=== PATIENT | male | born 1995 | race Caucasian/White ===

== ENCOUNTER 2024-02-26 23:11 | Observation (INO) | payer OTHER, SELFPAY ==
[2024-02-26 23:12] VITALS: BP 165/125; BP 188/121; PULSE 120; PULSE 125; RESP 20; RESP 24; TEMP 37.1; O2SAT 98; BMI 23.1
--- NOTE | 2024-02-26 23:28 | EKG12_ITS ---
Test Reason : ETOH DETOX Blood Pressure : / mmHG Vent. Rate : 111 BPM Atrial Rate : 111 BPM P-R Int : 118 ms QRS Dur : 080 ms QT Int : 290 ms P-R-T Axes : 034 055 -03 degrees QTc Int : 394 ms Sinus tachycardia Nonspecific ST and T wave abnormality Abnormal ECG Confirmed by Gonzalo Kowalski ([id number]), acquisitions editor GEOVANNA DAWN ([id number]) on 02/28/2024 7:13:38 AM Referred By: JACEK Confirmed By:Gonzalo Kowalski
[2024-02-26 23:41] LABS: Absolute Lymphocyte Count 1.52 X10^3/uL (0.83-4.51); Absolute Neutrophil Count 5.9 X10^3/uL (2.0-7.7); Basophil# 0.09 X10^3/uL; Basophil% 1.1 % (0-1); Eosinophil# 0.03 X10^3/uL; Eosinophils% 0.4 % (0-5); Hematocrit 45.3 % (40-54); Hemoglobin 15.2 g/dL (13.0-16.5); Lymphocyte # 1.52 X10^3/ul (0.83-4.51); Lymphocyte % 18.4 % (19-41); Mean Corp Hgb Conc 33.6 g/dL (32-36); Mean Corpuscular Hgb 32.2 pg (27.0-32.0); Mean Platelet Vol. 11.3 fl (6.2-12.0); Monocyte# 0.73 X10^3/uL; Monocyte% 8.8 % (0-10); NRBC Flagged by Analyzer 0 % (0-5); Neutrophil # 5.86 X10^3/uL (2.7-7.7); Neutrophil % 70.9 % (47-70); Platelet Count 154 K/mm3 (150-450); RBC Distribution Width CV 12.8 % (11.6-14.6); RBC Distribution Width SD 45.8 fl (35.1-43.9); Red Blood Count 4.72 M/mm3 (4.6-6.2); White Blood Count 8.3 K/mm3 (4.4-11.0)
[2024-02-26] MEDS: LORazepam 2 MG/ML Syringe IV (23:42)
[2024-02-26] MEDS: 0.9% Normal Saline (1000mL) 1,000 ML 999 ML IV (23:42)
--- NOTE | 2024-02-26 23:48 | EDS_ITS ---
HPI History of Present Illness Chief Complaint: ETOH Intox Narrative Narrative: 28-year-old male presenting for detox from alcohol. He states he does not do other drugs but did smoke marijuana once last week. He reports that he drinks about a handle of Adalid Vizcarra every other day. Last drink was just a few hours ago. He has been tried over the last month for detox but every time he does he gets the shakes and feels bad. Patient has never detoxed before. He is never had a history of withdrawal seizures. He does not think he can detox on his own. He reports feeling very shaky. Denies any other medical problems. [facility] Medical History Alcohol abuse Home Medications NK 02/26/24 [History Last Taken Unknown] Allergy/AdvReac Type Severity Reaction Status Date / Time No Known Allergies Allergy Verified 02/26/24 23:12 Social History Smoking Status: Current every day smoker tobacco type: e-cigarettes ROS ROS ED Constitutional Constitutional ED: Denies chills, fever(s) or sweats Eyes Eyes: Denies blurry vision or change in vision ENT ENT ED: Denies ear pain or sore throat Cardiovascular Cardiovascular: Denies chest pain, palpitations or racing heartbeat Respiratory/Chest Respiratory/Chest: Denies cough, dyspnea or sputum Gastrointestinal Gastrointestinal: Denies abdominal pain, constipation, diarrhea, nausea or vomiting Genitourinary Genitourinary ED: Denies dysuria, hematuria or urinary frequency Musculoskeletal Musculoskeletal: Denies arthralgias, myalgias or neck pain Integumentary Denies abscess, Abrasions or rash Neurologic Neurologic: Denies headache(s), paresthesias or weakness Psychiatric Psychiatric: Denies anxiety, depression, suicidal ideation or suicidal thoughts Endocrine Endocrinology: Denies polydipsia or polyuria EXAM Physical Exam Const Vital Signs: 02/26/24 23:12 02/26/24 23:12 Temperature 98.8 F 98.8 F Temperature Source Oral Oral Pulse Rate 125 H 120 H Respiratory Rate 24 H 20 H Blood Pressure 188/121 H 165/125 H Blood Pressure Mean 143 138 Blood Pressure Source Monitor Blood Pressure Position Semi-Fowlers Blood Pressure Location Left Arm Pulse Ox 98 98 Positive well nourished General Appearance ED: NAD HEENT Reports moist mucous membranes Eyes PERRL and EOMs intact bilaterally Chest Wall inspection of chest normal Resp normal respiratory effort and clear to auscultation bilaterally Auscultation: Negative for rales, rhonchi or wheezes Cardio Rate: tachycardic GI soft to palpation and non-tender Neuro oriented x3 and CN's II-XII intact bilaterally Sensorium / Orientation: alert Motor Exam: strength 5/5 throughout Psych mental status grossly normal Mood & Affect: anxious MDM MDM MDM Narrative Medical decision making narrative: Patient presenting for alcohol detox. He is shaky. He is hypertensive and tachycardic. He is given 2 mg of Ativan and I started about a phenobarbital. Screening lab work was obtained. Patient given IV fluids. CBC shows normal white blood cell 8.3. Hemoglobin 15.2. Platelets are normal at 54. Creatinine normal at 1.15. Electrolytes within normal limits with exception of a sodium of 132. LFTs are abnormal. Patient has total bilirubin 1.9, AST 46, ALT 176, alk phos 131. Likely related to alcohol abuse. EtOH is negative. Lipase is normal. Patient was assessed with hospitalist for admission. Impression: 1. EtOH withdrawal 2. EtOH abuse 3. Presentation for EtOH detox 4. Alcoholic hepatitis Lab Data Attestation: I reviewed the patient's lab results. Labs: Laboratory Results - last 24 hr 02/26/24 23:18 WBC 8.3 RBC 4.72 Hgb 15.2 Hct 45.3 MCV 96.0 H MCH 32.2 H MCHC 33.6 RDW Std Deviation 45.8 H RDW Coeff of Oskar 12.8 Plt Count 154 MPV 11.3 Immature Gran % (Auto) 0.400 Neut % (Auto) 70.9 H Lymph % (Auto) 18.4 L [place] % (Auto) 8.8 Eos % (Auto) 0.4 Baso % (Auto) 1.1 H Absolute Neuts (auto) 5.9 Absolute Lymphs (auto) 1.52 Nucleated RBC % 0 Sodium 132 L Potassium 3.6 Chloride 94 L Carbon Dioxide 28.0 Anion Gap 10 BUN 12 Creatinine 1.15 Estim Creat Clear Calc 100.95 Est GFR (MDRD) Af Amer 96 Est GFR (MDRD) Non-Af 80 BUN/Creatinine Ratio 10.4 Glucose 120 H Calcium 10.3 H Total Bilirubin 1.90 H AST 436 H ALT 176 H Alkaline Phosphatase 131 H Total Protein 9.5 H Albumin 5.1 H Globulin 4.4 H Albumin/Globulin Ratio 1.2 Lipase 34 Ethyl Alcohol 4.0 Discharge Plan Triage Chief Complaint: ETOH Intox ED Provider: Krishna Rosas Dx/Rx/DC Orders Prescriptions: No Action NK Primary Care Provider: Care Physician,No Primary Referrals: NOT,DEFINED [Non-Staff] -
[2024-02-26] MEDS: Phenobarbital 32.4 MG Tablet 97.2 MG PO (23:57)
[2024-02-26 23:58] LABS: ALB/GLOB Ratio 1.2 RATIO (0.9-2.4); AST(SGOT) 436 U/L (15-37); Alanine Aminotransfer ALT/SGPT 176 U/L (16-61); Albumin, Serum 5.1 g/dL (3.2-5.0); Alkaline Phosphatase 131 U/L (45-117); Anion Gap 10 (5-15); BUN 12 mg/dL (7-18); BUN/Creat Ratio 10.4 RATIO (10-20); Calcium,Total 10.3 mg/dL (8.5-10.1); Chloride 94 mmol/L (98-107); Creatinine, Serum 1.15 mg/dL (0.70-1.30); EST Glomerular Filtration Rate 80 mL/min (>60); Est Glom Filt Rate - Afr Amer 96 mL/min (>60); Estimated Creatinine Clearance 100.95 ml/min; Globulin 4.4 g/dL (2.2-4.2); Glucose 120 mg/dL (74-106); Lipase 34 U/L (13-75); Potassium 3.6 mmol/L (3.5-5.1); Protein, Total 9.5 g/dL (6.4-8.2); Sodium Level 132 mmol/L (136-145)
[2024-02-27] VITALS (14 sets, daily range): BP systolic 123–161; BP diastolic 82–111; PULSE 66–113; RESP 14–27; TEMP 36.2–36.6; O2SAT 93–100; BMI 23.6
[2024-02-27] MEDS: Ondansetron 4 MG/2 ML Vial IV (00:05)
--- NOTE | 2024-02-27 00:12 | HP.PCM.HOS_ITS ---
[facility] - General General Date of Admission: 02/27/24 Date of Service: 02/27/24 Chief Complaint: Alcohol Withdrawal. HPI Narrative NAE JOHNSON, is a 28 M with a past medical history of tobacco abuse, chronic alcohol abuse for the past 10 years; with patient drinking several beers and a handle of Adalid Vizcarra every other day, cannabis abuse and depression with anxiety who presents to [facility] ER complaining of alcohol withdrawal. Mr. Johnson reports his symptoms began approximately 1 day prior to admission when he began attempting to wean himself off of alcohol. He states his last drink was a few hours ago but he vomited up with progressively worsening tremor, chills and malaise so he decided to come in for further ev aluation and treatment. Upon further questioning he states he has tried to quit 7 times in the past by himself and has not been able to do so. He states he has never been in a formal alcohol detox program before. He denies a history of alcohol withdrawal seizures or DTs. He also denies associated fever, nausea, vomiting, shortness of breath, chest pain or other illicit drug use. In the ER he was diagnosed with clinical evidence of acute alcohol withdrawal in the setting of chronic alcohol abuse and laboratory evidence of acute alcoholic hepatitis with mild hyperbilirubinemia of 1.9 mg/dL present on admission in addition to moderately elevated LFTs and he was then admitted to the general medical floor for ongoing care for stay that is expected to be greater than 48 hours. [facility] Medical History Alcohol abuse Home Medications NK 02/26/24 [History Last Taken Unknown] Allergy/AdvReac Type Severity Reaction Status Date / Time No Known Allergies Allergy Verified 02/26/24 23:12 Social History Smoking Status: Current every day smoker tobacco type: e-cigarettes ROS ROS Narrative Review of systems: General: Patient admits to chills and tremor but denies fever or sweats. HENT: Denies headache, denies stuffy nose, denies sore throat EYES: Denies changes in vision or discharge from eyes. Resp: Denies cough, denies shortness of breath Cardiac: Denies chest pain, palpitations or heart racing. GI: Denies abdominal pain, denies changes in bowel, denies nausea or vomiting. : Denies changes in urination Extremity: Denies swelling Musculoskeletal: Patient denies arthralgias or myalgias. Neuro: Patient denies headache, paresthesias or focal neurologic weakness. Heme: Denies any bleeding or bruising Skin: Denies rashes Psychiatric: Patient admits to severe anxiety chronic depression made worse by his alcohol abuse. Endocrine: No polyuria, polydipsia or polyphagia. The rest of the 14 point ROS was negative except for positives in HPI. Vital Signs Vital Signs Vital Signs: 02/26/24 23:12 02/26/24 23:12 Temperature 98.8 F 98.8 F Temperature Source Oral Oral Pulse Rate 125 H 120 H Respiratory Rate 24 H 20 H Blood Pressure 188/121 H 165/125 H Blood Pressure Mean 143 138 Blood Pressure Source Monitor Blood Pressure Position Semi-Fowlers Blood Pressure Location Left Arm Pulse Ox 98 98 Weight Weight: 166 lb 0.129 oz Body Mass Index (BMI) 23.1 Physical Exam Const alert, oriented x3, no apparent distress and average body habitus General Appearance: cooperative HEENT normocephalic, head/scalp atraumatic, hearing grossly normal bilaterally and moist oral mucous membranes Eyes PERRL and EOMs intact bilaterally Neck no lymphadenopathy and supple Resp normal respiratory effort, no retractions, no use of accessory muscles and clear to auscultation bilaterally Cardio regular rate and regular rhythm GI normal to inspection, nondistended, normoactive bowel sounds, soft to palpation, non-tender and non-distended Extremity normal to inspection and full ROM Skin Skin Narrative: Patient has no evidence of rash or jaundice. Neuro oriented x3, CN's II-XII intact bilaterally, moves all extremities and no focal motor deficits Neuro Narrative: Patient is tremulous and anxious. Sensorium / Orientation: awake, alert, oriented to person, oriented to place and oriented to time Speech: speech normal Motor Exam: strength 5/5 throughout Psych Mood & Affect: anxious Results Medical Records Data Attestation: I reviewed the patient's medical records Lab / Micro Data Attestation: I reviewed the patient's lab results. 02/26/24 23:18 02/26/24 23:18 Labs: Laboratory Results - last 24 hr 02/26/24 23:18: WBC 8.3, RBC 4.72, Hgb 15.2, Hct 45.3, MCV 96.0 H, MCH 32.2 H, MCHC 33.6, RDW Std Deviation 45.8 H, RDW Coeff of Oskar 12.8, Plt Count 154, MPV 11.3, Immature Gran % (Auto) 0.400, Neut % (Auto) 70.9 H, Lymph % (Auto) 18.4 L, [place] % (Auto) 8.8, Eos % (Auto) 0.4, Baso % (Auto) 1.1 H, Absolute Neuts (auto) 5.9, Absolute Lymphs (auto) 1.52, Nucleated RBC % 0, Sodium 132 L, Potassium 3.6, Chloride 94 L, Carbon Dioxide 28.0, Anion Gap 10, BUN 12, Creatinine 1.15, Estim Creat Clear Calc 100.95, Est GFR (MDRD) Af Amer 96, Est GFR (MDRD) Non-Af 80, BUN/Creatinine Ratio 10.4, Glucose 120 H, Calcium 10.3 H, Total Bilirubin 1.90 H, AST 436 H, ALT 176 H, Alkaline Phosphatase 131 H, Total Protein 9.5 H, Albumin 5.1 H, Globulin 4.4 H, Albumin/Globulin Ratio 1.2, Lipase 34, Ethyl Alcohol 4.0 Assessment & Plan Assessment/Plan (1) Alcohol withdrawal: QUALIFIERS: Complication of substance-induced condition: with unspecified complication Qualified Code(s): F10.939 - Alcohol use, unspecified with withdrawal, unspecified (2) Alcoholic hepatitis without ascites: (3) Hyperbilirubinemia: (4) Chronic alcohol abuse: (5) Tobacco abuse: PLAN: Plan 1. Acute alcohol withdrawal in the setting of chronic alcohol abuse - Admit to general medical floor for treatment under the alcohol withdrawal protocol primarily with phenobarbital. Avoid Tylenol and this chronic alcoholic patient. Alcohol cessation was strongly encouraged with patient verbalizing understanding. 2. Alcoholic hepatitis; without ascites; but with mild hyperbilirubinemia of 1.9 mmol/L moderately elevated LFTs complicating #1 - Serialize CMP's to follow trend. Check PT/INR to evaluate his liver synthetic function of clotting factors. 3. Uncontrolled depression and anxiety compounding #1 & #2 - Patient directly asked about being started on antidepressants. He was informed that he would have to achieve sobriety before being started on antidepressant so that he does not run the additional risk of heavy drinking while on antidepressant medication. 4. Tobacco abuse adding to the pathology of #1 - #3 - Tobacco cessation was strongly encouraged with nicotine patch over to control cravings. 5. Cannabis abuse - Cannabis cessation will be strongly encouraged. 6. DVT prophylaxis - Lovenox 40 mg sq daily. Total time: Approximately 55 minutes. Charges/Coding Visit Charges Inpatient E&M: 66053 Init Hosp L2
[2024-02-27 00:45] LABS: Amphetamine Urine VISTA NEGATIVE (<1000 ng/mL); Barbiturate Urine VISTA NEGATIVE (< 200 ng/mL); Benzodiazepine Urine VISTA NEGATIVE (< 200 ng/mL); Cocaine Urine VISTA NEGATIVE (< 300 ng/mL); Ecstacy Urine VISTA NEGATIVE (< 500 ng/mL); Methadone Urine VISTA NEGATIVE (< 300 ng/mL); PCP Urine VISTA NEGATIVE (< 25 ng/mL); THC Urine VISTA POSITIVE (< 50 ng/mL); Vista UDS pH Range 5
[2024-02-27 02:07] LABS: International Normalized Ratio 1.2; Prothrombin Time (Protime)PT. 14.7 SECONDS (11.7-14.9)
[2024-02-27] MEDS: Gabapentin 300 MG Capsule PO ×2 (02:14→23:27)
[2024-02-27] MEDS: Phenobarbital 32.4 MG Tablet 64.8 MG PO ×6 (04:04→23:27)
[2024-02-27] MEDS: Ibuprofen 200 MG Tablet PO (04:06)
--- NOTE | 2024-02-27 07:27 | PCM.PN.HOSP ---
Reason for Visit Reason for Visit: Diagnoses Other disorders of bilirubin metabolism (02/27/24) Alcohol abuse, uncomplicated (02/27/24) Alcohol use, unspecified with withdrawal, unspecified (02/27/24) Alcoholic hepatitis without ascites (02/27/24) Tobacco use (02/27/24) Objective Data Objective Data Vital Signs: Vital Signs Temp Pulse Resp BP Pulse Ox O2 Del Method 98 F 103 H 14 138/98 H 98 Room Air 02/27/24 04:00 02/27/24 04:00 02/27/24 04:00 02/27/24 04:00 02/27/24 04:00 02/27/24 04:00 Oxygen Delivery Method Room Air Weight: 164 lb 3.91 oz Body Mass Index (BMI) 23.6 Intake & Output: Intake and Output for Last 24 Hours 02/25/24 02/26/24 02/27/24 23:59 23:59 23:59 Intake Total 1000 / 1000 Balance 1000 / 1000 Lab / Micro Data 02/26/24 23:18 02/26/24 23:18 Labs: Laboratory Results - last 24 hr 02/26/24 00:18: Urine Opiates Screen NEGATIVE, Urine Methadone Screen NEGATIVE, Ur Barbiturates Screen NEGATIVE, Ur Phencyclidine Scrn NEGATIVE, Ur Amphetamines Screen NEGATIVE, MDMA (Ecstasy) Screen NEGATIVE, U Benzodiazepines Scrn NEGATIVE, Urine Cocaine Screen NEGATIVE, U Cannabinoids Screen POSITIVE H, Ur Drug Screen Comment 02/26/24 23:18: WBC 8.3, RBC 4.72, Hgb 15.2, Hct 45.3, MCV 96.0 H, MCH 32.2 H, MCHC 33.6, RDW Std Deviation 45.8 H, RDW Coeff of Oskar 12.8, Plt Count 154, MPV 11.3, Immature Gran % (Auto) 0.400, Neut % (Auto) 70.9 H, Lymph % (Auto) 18.4 L, [place] % (Auto) 8.8, Eos % (Auto) 0.4, Baso % (Auto) 1.1 H, Absolute Neuts (auto) 5.9, Absolute Lymphs (auto) 1.52, Nucleated RBC % 0, PT 14.7, INR 1.2, Sodium 132 L, Potassium 3.6, Chloride 94 L, Carbon Dioxide 28.0, Anion Gap 10, BUN 12, Creatinine 1.15, Estim Creat Clear Calc 100.95, Est GFR (MDRD) Af Amer 96, Est GFR (MDRD) Non-Af 80, BUN/Creatinine Ratio 10.4, Glucose 120 H, Calcium 10.3 H, Total Bilirubin 1.90 H, AST 436 H, ALT 176 H, Alkaline Phosphatase 131 H, Total Protein 9.5 H, Albumin 5.1 H, Globulin 4.4 H, Albumin/Globulin Ratio 1.2, Lipase 34, Ethyl Alcohol 4.0 Physical Exam Narrative Seen and examined. Patient admitted with acute alcohol withdrawal symptoms. Patient has mild tremors shaking and restlessness. Denies seizure or any acute DT he was drinking about 1 big bottle of Adaild Vizcarra every day Physical exam General: Alert, Oriented x3, Cooperative HEENT: Atraumatic, PERRLA, EOMI, Normocephalic Oral: No Gingival or Mucosal Lesions/ Ulcerations Neck: Supple, No JVD, Negative Carotid Bruits Chest wall/Lungs: Air entry diminished in bilateral lung bases. No crepitation/rhonchi Cardiovascular: Regular rate, Regular Rhythm, Normal S1, Normal S2, No M/G/R Abdomen: Bowel Sounds Present, Soft, Non Tender, Non-Distended : No dysuria. No renal angle tenderness. No suprapubic tenderness. Extremities: No edema, Capillary Refill Less than 3 Seconds Skin: No rashes, No breakdown Musculoskeletal: No Tenderness to Palpation of Joints or Extremities. Mild tremors. Neurological: Cranial nerves II-XII grossly intact, DTR 2+/4. No acute focal neurological deficit. Psych/Mental Status: Anxiety, restlessness Skin Skin Narrative: Patient has no evidence of rash or jaundice. Neuro Neuro Narrative: Patient is tremulous and anxious. Assessment & Plan Assessment/Plan (1) Alcohol withdrawal: QUALIFIERS: Complication of substance-induced condition: with unspecified complication Qualified Code(s): F10.939 - Alcohol use, unspecified with withdrawal, unspecified (2) Alcoholic hepatitis without ascites: PLAN: Plan 67-year-old female was admitted to nursing station 28-year-old gentleman with history of chronic alcohol use was admitted with acute alcohol withdrawal symptoms with vomiting tremor chills malaise. 1. Acute alcohol withdrawal in the setting of chronic alcohol abuse - [facility] Patient on phenobarbital based order set along with other adjunctive medications gabapentin, Bentyl, Vistaril, clonidine, Klonopin as needed for alcohol withdrawal symptom control. Patient is on thiamine and folate acid. [place] monitor. housing case manager consulted.. Patient attempted to self wean off alcohol 1 day prior to admission. Earlier, patient tried to quit several times but relapsed. Denies history of seizure or DT 2. Acute on chronic alcoholic hepatitis; without ascites; but with mild hyperbilirubinemia of 1.9 mmol/L - 02/26: INR 1.2. Total bilirubin 1.9. ALT AST are elevated, AST: ALT ratio more than 2 is to 1. Patient does not qualify for steroid as per Shelby's discrimination factor. Monitor liver chemistry 3. Uncontrolled depression and anxiety- Patient directly asked about being started on antidepressants. He was informed that he would have to achieve sobriety before being started on antidepressant so that he does not run the additional risk of heavy drinking while on antidepressant medication. 4. Tobacco abuse adding to the pathology of #1 - #3 - Tobacco cessation was strongly encouraged with nicotine patch over to control cravings. 5. Cannabis abuse - Cannabis cessation will be strongly encouraged. 6. DVT prophylaxis - Lovenox 40 mg sq daily. T Charges/Coding Visit Charges Inpatient E&M: 26196 Subs Hosp L2
[2024-02-27] MEDS: Thiamine Hydrochloride 100 MG Tablet PO (09:26)
[2024-02-27] MEDS: Folic Acid 1 MG Tablet PO (09:26)
--- NOTE | 2024-02-27 11:05 | ADDICTION ---
TW met with PT to complete RAMP assessments. Pt reports this is his first time coming to a medical detox. He reports that he has tried it on his own but the symptoms were too bad to continue. Pt answered all questions appropriately. Pt reports that he would like to speak to his preacher and possibly go to AA prior to involving himself in any treatment. Pt has some ambivalence for changed behavior as evidence by suggesting he smoke marijuana and take anxiety medications instead of drinking alcohol behavior. TW suggested outpatient AOD counseling to help pt understand addiction and addictive behaviors. Pt reported he would think about it.
[2024-02-27] MEDS: Nicotine Polacrilex 2 MG GUM PO ×4 (12:18→23:35)
[2024-02-27] MEDS: traZODone 100 MG Tablet PO (23:27)
[2024-02-28 04:23] VITALS: BP 150/97; PULSE 87; RESP 18; TEMP 36.2; O2SAT 98
[2024-02-28] MEDS: Phenobarbital 32.4 MG Tablet 64.8 MG PO ×6 (04:33→23:33)
[2024-02-28] MEDS: Nicotine Polacrilex 2 MG GUM PO ×3 (04:35→11:39)
[2024-02-28 07:54] VITALS: BP 153/100; PULSE 69; RESP 16; TEMP 36.6; O2SAT 98
[2024-02-28] MEDS: Thiamine Hydrochloride 100 MG Tablet PO (08:03)
[2024-02-28] MEDS: Folic Acid 1 MG Tablet PO (08:03)
[2024-02-28] MEDS: hydrOXYzine PAM 25 MG Capsule 50 MG PO ×2 (08:08→20:02)
[2024-02-28] MEDS: Ibuprofen 200 MG Tablet PO (08:08)
--- NOTE | 2024-02-28 08:51 | PCM.PN.HOSP ---
Reason for Visit Reason for Visit: Diagnoses Other disorders of bilirubin metabolism (02/27/24) Alcohol abuse, uncomplicated (02/27/24) Alcohol use, unspecified with withdrawal, unspecified (02/27/24) Alcoholic hepatitis without ascites (02/27/24) Tobacco use (02/27/24) Objective Data Objective Data Vital Signs: Vital Signs Temp Pulse Resp BP Pulse Ox O2 Del Method 97.8 F 69 16 153/100 H 98 Room Air 02/28/24 07:54 02/28/24 07:54 02/28/24 07:54 02/28/24 07:54 02/28/24 07:54 02/28/24 08:36 Oxygen Delivery Method Room Air Weight: 164 lb 3.91 oz Body Mass Index (BMI) 23.6 Intake & Output: Intake and Output for Last 24 Hours 02/26/24 02/27/24 02/28/24 23:59 23:59 23:59 Intake Total 2400 / 2400 Balance 2400 / 2400 Lab / Micro Data 02/26/24 23:18 02/28/24 07:30 Physical Exam Narrative Seen and examined. Patient asking for discharge but was told that he is on high-dose of phenobarbitone 97.2 mg. He agreed to stay 1 more day. Alcohol withdrawal symptoms are better. Patient admitted with acute alcohol withdrawal symptoms. Denies seizure or any acute DT he was drinking about 1 big bottle of Adalid Vizcarra every day Physical exam General: Alert, Oriented x3, Cooperative HEENT: Atraumatic, PERRLA, EOMI, Normocephalic Oral: No Gingival or Mucosal Lesions/ Ulcerations Neck: Supple, No JVD, Negative Carotid Bruits Chest wall/Lungs: Air entry diminished in bilateral lung bases. No crepitation/rhonchi Cardiovascular: Regular rate, Regular Rhythm, Normal S1, Normal S2, No M/G/R Abdomen: Bowel Sounds Present, Soft, Non Tender, Non-Distended : No dysuria. No renal angle tenderness. No suprapubic tenderness. Extremities: No edema, Capillary Refill Less than 3 Seconds Skin: No rashes, No breakdown Musculoskeletal: No Tenderness to Palpation of Joints or Extremities. Tremors have improved Neurological: Cranial nerves II-XII grossly intact, DTR 2+/4. No acute focal neurological deficit. Psych/Mental Status: Anxiety, restlessness Assessment & Plan Assessment/Plan (1) Alcohol withdrawal: QUALIFIERS: Complication of substance-induced condition: with unspecified complication Qualified Code(s): F10.939 - Alcohol use, unspecified with withdrawal, unspecified (2) Alcoholic hepatitis without ascites: PLAN: Plan 67-year-old female was admitted to nursing station 28-year-old gentleman with history of chronic alcohol use was admitted with acute alcohol withdrawal symptoms with vomiting tremor chills malaise. 1. Acute alcohol withdrawal in the setting of chronic alcohol abuse - patient is being admitted to [facility] floor. Patient on phenobarbital based order set along with other adjunctive medications gabapentin, Bentyl, Vistaril, clonidine, Klonopin as needed for alcohol withdrawal symptom control. Patient is on thiamine and folate acid. [facility] monitor. safety and skill based pay manager consulted.. Patient attempted to self wean off alcohol 1 day prior to admission. Earlier, patient tried to quit several times but relapsed. Denies history of seizure or DT 02/27: Phenobarbitone does decreased to 64.8 mg. Anticipate discharge tomorrow 2. Acute on chronic alcoholic hepatitis; without ascites; but with mild hyperbilirubinemia of 1.9 mmol/L - 02/26: INR 1.2. Total bilirubin 1.9. ALT AST are elevated, AST: ALT ratio more than 2 is to 1. Patient does not qualify for steroid as per Shelby's discrimination factor. Monitor liver chemistry 02/27: Liver chemistry shows improvement in ALT AST. GGT high 3036. Total bilirubin also improved from 1.9-1.6. 3. Uncontrolled depression and anxiety- Patient directly asked about being started on antidepressants. He was informed that he would have to achieve sobriety before being started on antidepressant so that he does not run the additional risk of heavy drinking while on antidepressant medication. 4. Tobacco abuse adding to the pathology of #1 - #3 - Tobacco cessation was strongly encouraged with nicotine patch over to control cravings. 5. Cannabis abuse - Cannabis cessation will be strongly encouraged. 6. DVT prophylaxis - Lovenox 40 mg sq daily. T Charges/Coding Visit Charges Inpatient E&M: 24380 Subs Hosp L2
[2024-02-28 09:40] LABS: AST(SGOT) 238 U/L (15-37); Alanine Aminotransfer ALT/SGPT 131 U/L (16-61); Albumin, Serum 4.2 g/dL (3.2-5.0); Alkaline Phosphatase 117 U/L (45-117); Anion Gap 7 (5-15); BUN 10 mg/dL (7-18); BUN/Creat Ratio 10.2 RATIO (10-20); Bilirubin, Direct 0.69 mg/dL (0.00-0.30); Calcium,Total 9.1 mg/dL (8.5-10.1); Chloride 100 mmol/L (98-107); Creatinine, Serum 0.98 mg/dL (0.70-1.30); EST Glomerular Filtration Rate 96 mL/min (>60); Est Glom Filt Rate - Afr Amer 116 mL/min (>60); Estimated Creatinine Clearance 114.84 ml/min; GGTP 3036 U/L (15-85); Glucose 113 mg/dL (74-106); Potassium 3.9 mmol/L (3.5-5.1); Protein, Total 8.2 g/dL (6.4-8.2); Sodium Level 132 mmol/L (136-145)
[2024-02-28 11:24] VITALS: BP 130/90; PULSE 81; RESP 12; TEMP 36.7; O2SAT 98
[2024-02-28 16:12] VITALS: BP 147/90; PULSE 78; RESP 16; TEMP 36.6; O2SAT 98
[2024-02-28 20:00] VITALS: BP 144/98; PULSE 77; RESP 18; TEMP 36.4; O2SAT 100
[2024-02-28 23:35] VITALS: BP 157/109; PULSE 75; RESP 18; TEMP 36.4; O2SAT 99
[2024-02-28] MEDS: 0.9% Saline Lock 10 ML Syringe IV (23:42)
[2024-02-29 03:54] VITALS: BP 145/109; PULSE 85; RESP 18; TEMP 36.4; O2SAT 99
[2024-02-29] MEDS: Phenobarbital 32.4 MG Tablet 64.8 MG PO ×3 (03:55→11:53)
[2024-02-29] MEDS: Enoxaparin 40 MG/0.4 ML Syringe SC (05:15)
[2024-02-29] MEDS: Gabapentin 300 MG Capsule PO (05:18)
[2024-02-29 05:31] LABS: Anion Gap 6 (5-15); BUN 9 mg/dL (7-18); BUN/Creat Ratio 9.7 RATIO (10-20); Calcium,Total 9.6 mg/dL (8.5-10.1); Chloride 102 mmol/L (98-107); Creatinine, Serum 0.93 mg/dL (0.70-1.30); EST Glomerular Filtration Rate 101 mL/min (>60); Est Glom Filt Rate - Afr Amer 123 mL/min (>60); Estimated Creatinine Clearance 121.01 ml/min; Glucose 98 mg/dL (74-106); Potassium 3.5 mmol/L (3.5-5.1); Sodium Level 135 mmol/L (136-145)
[2024-02-29 08:03] VITALS: BP 135/100; PULSE 64; RESP 18; TEMP 36.1; O2SAT 98
[2024-02-29] MEDS: Thiamine Hydrochloride 100 MG Tablet PO (08:08)
[2024-02-29] MEDS: Folic Acid 1 MG Tablet PO (08:09)
--- NOTE | 2024-02-29 08:16 | DCINST_ITS ---
Discharge Instructions Diet Discharge Diet: No restrictions Activity Discharge Activity: Return to Normal Activity Weight Bearing Status: Weight bearing as tolerated Dressing / Incision Call your doctor if you observe: Fever of 101 or Higher, Coldness, Increased Pain, Numbness or Tingling, Change in Color, Inability to urinate, Inability to have a bowel movement, Shortness of breath, Dizziness, Fainting spells, Swelling in the ankles, Chest pain, Prolonged hiccupping, Increased palpitations (irregular heartbeat) and Calf discomfort Follow Up Care When: IN 2 WEEKS Test Results: Test results from this visit will be discussed in further detail at your follow- up appointment, if applicable. Discharge Plan Admission Admit Date/Time: 02/27/24 00:30 Attending Provider: Jabier Hernandes Primary Care Provider: Care Physician,No Primary Consulting Providers: Sebastian Thompson Discharge Orders/Prescriptions Prescriptions: New thiamine HCl (vitamin B1) [Vitamin B-1] 100 mg Tablet 100 mg PO DAILYCM Qty: 30 2RF nicotine 21 mg/24 hr Patch 24 Hour 21 mg transdermal DAILY Qty: 28 0RF folic acid 1 mg Tablet 1 mg PO DAILY@0800 30 Days Qty: 30 3RF No Action NK Referrals / Follow Up: Care Physician,No Primary [Primary Care Provider] - NOT,DEFINED [Non-Staff] - Disposition Disposition (needs filled in before D/C Order can be placed): Home, Self Care
--- NOTE | 2024-02-29 08:20 | DS.PCM_ITS ---
Providers Date of Admission: 02/27/24 Date of Discharge: 02/29/24 Primary Care Physician: No Primary Care Phys Reason For Visit: ACUTE ALCOHOL WITHDRAWAL, ALCOHOLIC HEPATITIS AND Diagnosis Discharge Diagnosis (1) Alcohol withdrawal: Status: Acute Code(s): F10.939 - Alcohol use, unspecified with withdrawal, unspecified Qualifiers: Complication of substance-induced condition: with unspecified complication Qualified Code(s): F10.939 - Alcohol use, unspecified with withdrawal, unspecified (2) Alcoholic hepatitis without ascites: Status: Acute Code(s): K70.10 - Alcoholic hepatitis without ascites Plan 67-year-old female was admitted to nursing station 28-year-old gentleman with history of chronic alcohol use was admitted with acute alcohol withdrawal symptoms with vomiting tremor chills malaise. 1. Acute alcohol withdrawal in the setting of chronic alcohol abuse - [facility] Patient on phenobarbital based order set along with other adjunctive medications gabapentin, Bentyl, Vistaril, clonidine, Klonopin as needed for alcohol withdrawal symptom control. Patient is on thiamine and folate acid. [facility] monitor. manager secondary consulted.. Patient attempted to self wean off alcohol 1 day prior to admission. Earlier, patient tried to quit several times but relapsed. Denies history of seizure or DT 02/27: Phenobarbitone does decreased to 64.8 mg. 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 About 4 to 5 PM he fell asleep. In the morning he was still confused but later on the day he is behaving good. Patient is discharged on folic acid thiamine and advised follow-up 2. Acute on chronic alcoholic hepatitis; without ascites; but with mild hyperbilirubinemia of 1.9 mmol/L - 02/26: INR 1.2. Total bilirubin 1.9. ALT AST are elevated, AST: ALT ratio more than 2 is to 1. Patient does not qualify for steroid as per Shelby's discrimination factor. Monitor liver chemistry 02/27: Liver chemistry shows improvement in ALT AST. GGT high 3036. Total bilirubin also improved from 1.9-1.6. 3. Uncontrolled depression and anxiety- Patient directly asked about being started on antidepressants. He was informed that he would have to achieve sobriety before being started on antidepressant so that he does not run the additional risk of heavy drinking while on antidepressant medication. 4. Tobacco abuse adding to the pathology of #1 - #3 - Tobacco cessation was strongly encouraged with nicotine patch over to control cravings. 5. Cannabis abuse - Cannabis cessation will be strongly encouraged. 6. DVT prophylaxis - Lovenox 40 mg sq daily. Discharge medication reconciliation done. Discharge follow-up instructions completed. Discharge process discussed with the patient and all questions were answered to patient's satisfaction. Follow with PCP in 1 to 2 weeks Total time spent, exact 35 minutes on discharge meds reconciliation, examination, coordination of care with nurses and ancillary staff, review of imaging and blood test and discussion with the patient on follow-up instructions. Medications at Discharge Home Medications NK 02/26/24 folic acid 1 mg tablet 1 mg PO DAILY@0800 30 days #30 tabs 02/29/24 nicotine 21 mg/24 hr daily transdermal patch 21 mg transdermal DAILY #28 ea 02/29/24 thiamine HCl (vitamin B1) 100 mg tablet (Vitamin B-1) 100 mg PO DAILYCM #30 tabs 02/29/24 Physical Exam Narrative Seen and examined. Patient asked for discharge yesterday but was advised to rest and stay 1 more day. Could not sleep until 5 AM and then fell asleep. In the morning around midnight woke him up he was groggy and confused but later on he recovered. He wants to go home later today. Physical exam General: confused and disoriented in the morning but later on back to normal senses awake and alert. X 3. HEENT: Atraumatic, PERRLA, EOMI, Normocephalic Oral: No Gingival or Mucosal Lesions/ Ulcerations Neck: Supple, No JVD, Negative Carotid Bruits Chest wall/Lungs: Air entry diminished in bilateral lung bases. No crepi tation/rhonchi Cardiovascular: Regular rate, Regular Rhythm, Normal S1, Normal S2, No M/G/R Abdomen: Bowel Sounds Present, Soft, Non Tender, Non-Distended : No dysuria. No renal angle tenderness. No suprapubic tenderness. Extremities: No edema, Capillary Refill Less than 3 Seconds Skin: No rashes, No breakdown Musculoskeletal: No Tenderness to Palpation of Joints or Extremities. Tremors have improved Neurological: Cranial nerves II-XII grossly intact, DTR 2+/4. No acute focal neurological deficit. Psych/Mental Status: Anxiety, restlessness Weight / BMI Weight Weight: 164 lb 3.91 oz Body Mass Index (BMI) 23.6 ABG / Lab / Microbiology Data 02/26/24 23:18 02/29/24 03:08 Laboratory: Laboratory Results - last 24 hr 02/28/24 07:30: Sodium 132 L, Potassium 3.9, Chloride 100, Carbon Dioxide 25.0, Anion Gap 7, BUN 10, Creatinine 0.98, Estim Creat Clear Calc 114.84, Est GFR (MDRD) Af Amer 116, Est GFR (MDRD) Non-Af 96, BUN/Creatinine Ratio 10.2, Glucose 113 H, Calcium 9.1, Total Bilirubin 1.60 H, Direct Bilirubin 0.69 H, GGT 3036 H, AST 238 H, ALT 131 H, Alkaline Phosphatase 117, Total Protein 8.2, Albumin 4.2, Globulin 4.0 02/29/24 03:08: Sodium 135 L, Potassium 3.5, Chloride 102, Carbon Dioxide 27.0, Anion Gap 6, BUN 9, Creatinine 0.93, Estim Creat Clear Calc 121.01, Est GFR (MDRD) Af Amer 123, Est GFR (MDRD) Non-Af 101, BUN/Creatinine Ratio 9.7 L, Glucose 98, Calcium 9.6 D/C Instructions Discharge Diet: No restrictions Weight Bearing Status: Weight bearing as tolerated Call your doctor if you observe: Fever of 101 or Higher, Coldness, Increased Pain, Numbness or Tingling, Change in Color, Inability to urinate, Inability to have a bowel movement, Shortness of breath, Dizziness, Fainting spells, Swelling in the ankles, Chest pain, Prolonged hiccupping, Increased palpitations (irregular heartbeat) and Calf discomfort When: IN 2 WEEKS Meaningful Use Info Meaningful Use Diagnoses (Choose all that apply): None applicable Discharge Plan Admission Admit Date/Time: 02/27/24 00:30 Attending Provider: Jabier Hernandes Primary Care Provider: Care Physician,No Primary Consulting Providers: Sebastian Thompson Discharge Orders/Prescriptions Prescriptions: New thiamine HCl (vitamin B1) [Vitamin B-1] 100 mg Tablet 100 mg PO DAILYCM Qty: 30 2RF nicotine 21 mg/24 hr Patch 24 Hour 21 mg transdermal DAILY Qty: 28 0RF folic acid 1 mg Tablet 1 mg PO DAILY@0800 30 Days Qty: 30 3RF No Action NK Referrals / Follow Up: Care Physician,No Primary [Primary Care Provider] - NOT,DEFINED [Non-Staff] - Disposition Disposition (needs filled in before D/C Order can be placed): Home, Self Care Charges/Coding Visit Charges Inpatient E&M: 87412 Disch Hosp >30min
[2024-02-29 11:50] VITALS: BP 135/99; PULSE 60; RESP 18; TEMP 36.2; O2SAT 100
== END 2024-02-29 12:30 | disposition home or self-care (01) | DRG 897 ==
LOC: ED 23:59 → PCU 02-27 07:27
PROVIDERS: Admitting Provider Internal Medicine; Emergency Provider Student in an Organized Health Care Education/Training Program; Visit Provider Internal Medicine
DX: F10.239 Alcohol dependence with withdrawal, unspecified (principal); K70.10 Alcoholic hepatitis without ascites; F12.10 Cannabis abuse, uncomplicated; F32.A Depression, unspecified; F17.290 Nicotine dependence, other tobacco product, uncomplicated; F41.9 Anxiety disorder, unspecified; Y90.0 Blood alcohol level of less than 20 mg/100 ml; E87.1 Hypo-osmolality and hyponatremia
CPT/HCPCS: 36415; 80048; 80053; 80076; 80307; 82077; 82977; 83690; 85025; 85610; 93005; 96372; 96374; 96375; 97802; 99221; 99285; 99406; J7030; A4216; G0378; J2405

== ENCOUNTER 2024-11-21 16:47 | Emergency (ER) | payer SELFPAY ==
[2024-11-21 16:47] VITALS: BP 165/102; PULSE 102; RESP 16; TEMP 36.6; O2SAT 99; BMI 28.0
[2024-11-21 17:47] VITALS: BP 160/105; PULSE 105; RESP 18; O2SAT 98
--- NOTE | 2024-11-21 17:50 | EX.ED.VIS.PS ---
HPI <YVONNE Chacon - Last Filed: 11/21/24 21:19> HPI - Psych History of Present Illness Chief Complaint: ETOH Intox Narrative Narrative: Patient presenting today requesting to detox from alcohol. He reports that he does have a history of alcohol abuse, he spent about 6 months in a residential treatment facility in [place] for alcoholism and was discharged in October. He reports that he started drinking again last Saturday. He has purchased 4 handles of whiskey over the past week and reports drinking several drinks this afternoon, his last drink around 2 PM. He is requesting to detox from alcohol. He reports that he will feel nauseous, shaky, and have a headache if he does not drink. No history of withdrawal seizure. He reports occasional marijuana use. He also reports that alcohol exacerbates his depression and when he drinks he tends to feel suicidal. He has been feeling suicidal over the past week and reports that if he were to do it, he would shoot himself and he does have guns at home but he would never use them on himself because he could not do that to his parents. He denies HI or hallucinations. PFSH <YVONNE Chacon - Last Filed: 11/21/24 21:19> PFSH Medical History Alcoholic hepatitis without ascites Alcohol abuse Home Medications ?Medication ?Instructions ?Recorded ?Last Taken ?Type lithium carbonate 150 mg capsule 150 mg PO QHS 11/21/24 Unknown History lithium carbonate 600 mg capsule 600 mg PO QHS 11/21/24 Unknown History Allergy/AdvReac Type Severity Reaction Status Date / Time No Known Allergies Allergy Verified 11/21/24 16:47 Social History Smoking Status: Current every day smoker tobacco type: e-cigarettes ROS <YVONNE Chacon - Last Filed: 11/21/24 21:19> ROS ED Constitutional Constitutional ED: Denies chills or fever(s) Cardiovascular Cardiovascular: Denies chest pain Respiratory/Chest Respiratory/Chest: Denies dyspnea Gastrointestinal Gastrointestinal: Denies abdominal pain, nausea or vomiting Musculoskeletal Musculoskeletal: Denies arthralgias or myalgias Integumentary Denies rash Neurologic Neurologic: Denies weakness Psychiatric Psychiatric: Reports depression and suicidal thoughts EXAM <YVONNE Chacon - Last Filed: 11/21/24 21:19> Physical Exam Const Vital Signs: 11/21/24 16:47 11/21/24 17:47 11/21/24 18:00 Temperature 98 F Temperature Source Oral Pulse Rate 102 H 105 H 101 H Respiratory Rate 16 18 16 Blood Pressure 165/102 H 160/105 H 155/102 H Blood Pressure Mean 123 123 119 Pulse Ox 99 98 98 Oxygen Delivery Method Room Air Room Air Room Air Positive well nourished, well developed and no apparent distress General Appearance ED: well developed HEENT Reports normocephalic and head/scalp atraumatic Mouth ED: Yes moist mucous membranes normal Eyes PERRL and EOMs intact bilaterally Neck full ROM and supple Chest Wall inspection of chest normal Resp normal respiratory effort and clear to auscultation bilaterally Cardio regular rate and regular rhythm GI soft to palpation, non-tender, non-distended and no masses Back/Spine normal ROM and normal to inspection Extremity normal to inspection and full ROM Neuro oriented x3, CN's II-XII intact bilaterally, moves all extremities, no focal motor deficits and no sensory deficits noted Sensorium / Orientation: awake and alert Psych mental status grossly normal, thought process normal and cooperative Attitude: calm Thought Content: suicidality, No homicidality and No hallucination(s) Skin no rashes or lesions noted and no wounds <Dr. David Burk MD - Last Filed: 11/21/24 22:44> Physical Exam Const Vital Signs: 11/21/24 16:47 11/21/24 17:47 11/21/24 18:00 Temperature 98 F Temperature Source Oral Pulse Rate 102 H 105 H 101 H Respiratory Rate 16 18 16 Blood Pressure 165/102 H 160/105 H 155/102 H Blood Pressure Mean 123 123 119 Pulse Ox 99 98 98 Oxygen Delivery Method Room Air Room Air Room Air MDM <YVONNE Chacon - Last Filed: 11/21/24 21:19> [facility] MDM Narrative Medical decision making narrative: Presenting requesting to detox from alcohol. He has been drinking daily over the past week but prior to this had been sober for 6 months while living in a residential treatment facility in [place]. He has bought four handles of whiskey over the past week. He does not feel he is withdrawing at this time. He does admit to feeling suicidal over the last week and reports that alcohol exacerbates his depression. He has thought about shooting himself with a gun that he has at his house but reports he would never do that because it would upset his parents. Social work did speak with him, they do feel patient would benefit from admission to a psychiatric facility given his suicidal thoughts. Labs were obtained, his CBC and BMP are unremarkable. AST is 41, his alcohol level is 203, his urine tox screen is negative. He is not currently withdrawing, he will be given phenobarbital to prevent withdrawal symptoms. He has been pink slipped. Low concern for severe alcohol withdrawal given he has only been drinking consistently for a week. Placement at this time is pending. Patient remains in stable condition. Lab Data Attestation: I reviewed the patient's lab results. Lab results narrative: Creatinine 1.32, AST 41 Labs: Laboratory Results - last 24 hr 11/21/24 11/21/24 11/21/24 17:32 19:09 19:19 WBC 10.5 RBC 5.71 Hgb 15.9 Hct 47.5 MCV 83.2 MCH 27.8 MCHC 33.5 RDW Std Deviation 40.2 RDW Coeff of Oskar 13.2 Plt Count 305 MPV 9.3 Immature Gran % (Auto) 0.200 Neut % (Auto) 64.7 Lymph % (Auto) 27.2 [place] % (Auto) 5.9 Eos % (Auto) 1.1 Baso % (Auto) 0.9 Absolute Neuts (auto) 6.8 Absolute Lymphs (auto) 2.84 Nucleated RBC % 0 Sodium 139 Potassium 3.9 Chloride 103 Carbon Dioxide 28.0 Anion Gap 8 BUN 12 Creatinine 1.32 H Estim Creat Clear Calc 89.04 Est GFR (MDRD) Af Amer 82 Est GFR (MDRD) Non-Af 68 BUN/Creatinine Ratio 9.1 L Glucose 101 Calcium 9.3 Total Bilirubin 0.50 AST 41 H ALT 51 Alkaline Phosphatase 97 Total Protein 8.9 H Albumin 4.5 Globulin 4.4 H Albumin/Globulin Ratio 1.0 Urine Opiates Screen NEGATIVE Urine Methadone Screen NEGATIVE Ur Barbiturates Screen NEGATIVE Ur Phencyclidine Scrn NEGATIVE Ur Amphetamines Screen NEGATIVE MDMA (Ecstasy) Screen NEGATIVE U Benzodiazepines Scrn NEGATIVE Urine Cocaine Screen NEGATIVE U Cannabinoids Screen NEGATIVE Ur Drug Screen Comment Ethyl Alcohol 203.0 <Dr. David Burk MD - Last Filed: 11/21/24 22:44> MDM Lab Data Labs: Laboratory Results - last 24 hr 11/21/24 11/21/24 11/21/24 17:32 19:09 19:19 WBC 10.5 RBC 5.71 Hgb 15.9 Hct 47.5 MCV 83.2 MCH 27.8 MCHC 33.5 RDW Std Deviation 40.2 RDW Coeff of Oskar 13.2 Plt Count 305 MPV 9.3 Immature Gran % (Auto) 0.200 Neut % (Auto) 64.7 Lymph % (Auto) 27.2 [place] % (Auto) 5.9 Eos % (Auto) 1.1 Baso % (Auto) 0.9 Absolute Neuts (auto) 6.8 Absolute Lymphs (auto) 2.84 Nucleated RBC % 0 Sodium 139 Potassium 3.9 Chloride 103 Carbon Dioxide 28.0 Anion Gap 8 BUN 12 Creatinine 1.32 H Estim Creat Clear Calc 89.04 Est GFR (MDRD) Af Amer 82 Est GFR (MDRD) Non-Af 68 BUN/Creatinine Ratio 9.1 L Glucose 101 Calcium 9.3 Total Bilirubin 0.50 AST 41 H ALT 51 Alkaline Phosphatase 97 Total Protein 8.9 H Albumin 4.5 Globulin 4.4 H Albumin/Globulin Ratio 1.0 Urine Opiates Screen NEGATIVE Urine Methadone Screen NEGATIVE Ur Barbiturates Screen NEGATIVE Ur Phencyclidine Scrn NEGATIVE Ur Amphetamines Screen NEGATIVE MDMA (Ecstasy) Screen NEGATIVE U Benzodiazepines Scrn NEGATIVE Urine Cocaine Screen NEGATIVE U Cannabinoids Screen NEGATIVE Ur Drug Screen Comment Ethyl Alcohol 203.0 Treatment and Re-Evaluation Narrative: I have personally performed a face to face assessment of the patient and have reviewed the CRISTINE Note. I performed a substantive portion of the visit including all aspects of the following. My river findings include: History is presenting asking for detox from alcohol. Had some withdrawal symptoms when he woke up yesterday better with drinking. He has been averaging at least 1/5 a day for the past week. Prior to that he was sober for months. Also is depressed and admitting to suicidal thoughts. Exam is well-appearing, cooperative, pleasant, conversive. Abdomen soft nontender nondistended no jaundice, lungs clear. Medical Decison Making labs are normal, alcohol is over 200. No coingestants on toxicology. Social work evaluated the patient, and we spoke with her; she states patient is high risk and does have suicidal ideation, he has a gun, and should not be allowed to go home. Discussed this with the patient, we went to help him for both problems, and since he will be the waiting until he is sober we will manage withdrawal if he develops it and give him some prophylactic phenobarbital at this time. My suspicion for him going into life-threatening alcohol withdrawal/DT is relatively low since he is only been drinking constantly for 1 week right now. Checked out to ED the night physician for reevaluation after metabolizing alcohol, we are giving him phenobarbital in the meantime, and crisis will see him in the morning after his alcohol level is down to discern placement. Other additions or changes: [None] Discharge Plan Triage Chief Complaint: ETOH Intox Other Complaint: Suicidal ED Midlevel Provider: Yamileth Estrella ED Provider: David Burk Dx/Rx/DC Orders Clinical Impression: Depression with suicidal ideation, Chronic alcohol abuse, Alcohol intoxication Prescriptions: No Action lithium carbonate 150 mg capsule 150 mg PO QHS lithium carbonate 600 mg capsule 600 mg PO QHS Primary Care Provider: Care Physician,No Primary Referrals: Care Physician,No Primary [Primary Care Provider] - Print Language: Greenlandic Disposition Disposition: Psychiatric Hospital or Unit
[2024-11-21 18:00] VITALS: BP 155/102; PULSE 101; RESP 16; O2SAT 98
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
[2024-11-21 19:29] LABS: Amphetamine Urine VISTA NEGATIVE (<1000 ng/mL); Barbiturate Urine VISTA NEGATIVE (< 200 ng/mL); Benzodiazepine Urine VISTA NEGATIVE (< 200 ng/mL); Cocaine Urine VISTA NEGATIVE (< 300 ng/mL); Ecstacy Urine VISTA NEGATIVE (< 500 ng/mL); Methadone Urine VISTA NEGATIVE (< 300 ng/mL); PCP Urine VISTA NEGATIVE (< 25 ng/mL); THC Urine VISTA NEGATIVE (< 50 ng/mL); Vista UDS pH Range 6
[2024-11-21 19:29] LABS: Absolute Lymphocyte Count 2.84 X10^3/uL (0.83-4.51); Absolute Neutrophil Count 6.8 X10^3/uL (2.0-7.7); Basophil# 0.09 X10^3/uL; Basophil% 0.9 % (0-1); Eosinophil# 0.11 X10^3/uL; Eosinophils% 1.1 % (0-5); Hematocrit 47.5 % (40-54); Hemoglobin 15.9 g/dL (13.0-16.5); Lymphocyte # 2.84 X10^3/ul (0.83-4.51); Lymphocyte % 27.2 % (19-41); Mean Corp Hgb Conc 33.5 g/dL (32-36); Mean Corpuscular Hgb 27.8 pg (27.0-32.0); Mean Corpuscular Volume 83.2 fL (80-94); Mean Platelet Vol. 9.3 fl (6.2-12.0); Monocyte# 0.62 X10^3/uL; Monocyte% 5.9 % (0-10); NRBC Flagged by Analyzer 0 % (0-5); Neutrophil # 6.77 X10^3/uL (2.7-7.7); Neutrophil % 64.7 % (47-70); Platelet Count 305 K/mm3 (150-450); RBC Distribution Width CV 13.2 % (11.6-14.6); RBC Distribution Width SD 40.2 fl (35.1-43.9); Red Blood Count 5.71 M/mm3 (4.6-6.2); White Blood Count 10.5 K/mm3 (4.4-11.0)
[2024-11-21 19:48] LABS: AST(SGOT) 41 U/L (15-37); Alanine Aminotransfer ALT/SGPT 51 U/L (16-61); Albumin, Serum 4.5 g/dL (3.2-5.0); Alkaline Phosphatase 97 U/L (45-117); Anion Gap 8 (5-15); BUN 12 mg/dL (7-18); BUN/Creat Ratio 9.1 RATIO (10-20); Calcium,Total 9.3 mg/dL (8.5-10.1); Chloride 103 mmol/L (98-107); Creatinine, Serum 1.32 mg/dL (0.70-1.30); EST Glomerular Filtration Rate 68 mL/min (>60); Est Glom Filt Rate - Afr Amer 82 mL/min (>60); Estimated Creatinine Clearance 89.04 ml/min; Globulin 4.4 g/dL (2.2-4.2); Glucose 101 mg/dL (74-106); Potassium 3.9 mmol/L (3.5-5.1); Protein, Total 8.9 g/dL (6.4-8.2); Sodium Level 139 mmol/L (136-145)
[2024-11-21] MEDS: Phenobarbital 32.4 MG Tablet 97.2 MG PO (21:05)
--- NOTE | 2024-11-21 22:42 | CM.ED ---
Social Work: Placement needs will need to be rolled over to the Crisis Team once patient's alcohol levels come down. Crisis Team may need to reassess patient after alcohol levels have come down. Crisis indicated [facility] my be only option for patient at this time. Es Gomez, PARACHUTE ACCESSORIES ATTACHER, WAITER
[2024-11-22] MEDS: Lithium Carbonate 300mg Capsule 600 MG PO (00:46)
[2024-11-22] MEDS: Lithium Carbonate 150 MG Capsule PO (00:46)
[2024-11-22 00:48] VITALS: BP 136/96; PULSE 102; RESP 16; TEMP 36.6; O2SAT 98
[2024-11-22] MEDS: hydrOXYzine PAM 25 MG Capsule 50 MG PO (01:02)
--- NOTE | 2024-11-22 03:31 | ED.RN ---
CALLED [facility] TO LET THEM KNOW PTS ALCOHOL LEVEL HAD LOWERED TO AN ACCEPTABLE LEVEL AND FAXED THEM MEDICAL CLEARANCE AND SW ASSESSMENT. THEY STATED THEY HAD SPOKEN TO OUR ENTERPRISE PROJECT MANAGER LAST NIGHT AND [facility] IS THE ONLY FACILITY THEYLL BE ABLE TO REFER HIM DUE TO PT NOT HAVING INSURANCE. [facility] STATED THEY WILL WORK ON GETTING HIS PAPERWORK OVER TO THEM.
--- NOTE | 2024-11-22 05:19 | ED.RN ---
ANDRES CALLED @ 0518 TO LET US KNOW PT IS ACTUALLY A [facility] RESIDENT, SO THEY REFERRED PT TO [facility]. [facility] GAVE THEM OUR PHONE NUMBER AND FAXED THEM SOCIAL WORK ASSESSMENT AND MEDICAL CLEARANCE. [facility] WILL BE CONTACTING A LABOR RELATIONS OR PERSONNEL NEGOTIATOR AND THEN US WITH ANY INFORMATION REGARDING PLACEMENT.
--- NOTE | 2024-11-22 07:49 | ED.RN ---
Addendum entered by Keri Spear 11/22/24 07:52: forwarded info to [facility]. Original Note: Basia from [facility] called. She wants us to call [facility] and [facility] for placement. Message passed along to [facility]. They will look into it. Crisis Line for [facility] [phone].
--- NOTE | 2024-11-22 08:17 | ED.RN ---
luis from [facility] cent[facility] to update pt [facility] been [facility]. waiting on review and acceptance.
[2024-11-22 08:37] VITALS: BP 144/80; PULSE 85; RESP 16; TEMP 36.8; O2SAT 98
--- NOTE | 2024-11-22 09:39 | ED.RN ---
[facility] called regarding contacting [facility] for funding. pt has been accepted by [facility].
--- NOTE | 2024-11-22 09:46 | NURSING ---
EVELIO GARDINER CALLED WITH ACCEPTING INFO FOR PT, [facility] WAS CALLED AND WAS ADVISED AND THEY SAID THEYD WORK ON IT. [phone] PER STANFORD AT [facility], PT WAS ACC[facility]PTED AT [facility] ALREADY AND THE FUNDING PACKET HAS BEEN COMPLETED WITH [facility]. THEY ARE WORKING ON TRANSPORTATION FUNDING AND WILL LET US KNOW WHEN THAT IS FINALIZED AND WE HAVE THE GO AHEAD TO CONTINUE WITH TRANSFER.
--- NOTE | 2024-11-22 10:58 | NURSING ---
PER [facility] AT [facility], PAYMENT HAS BEEN SECURED FOR TRANSPORT. ACCEPTING AT [facility] [address] [phone] OPTION 0 ASK FOR [facility] WILL NEED TO BILL THE [facility]ING [facility], ATTN: LEANNA
[2024-11-22 11:42] VITALS: BP 144/80; PULSE 85; RESP 16; TEMP 36.8; O2SAT 98
== END 2024-11-22 12:36 ==
PROVIDERS: Physician Assistant; Emergency Provider Emergency Medicine; Visit Provider Emergency Medicine
DX: R45.851 Suicidal ideations (principal); F32.A Depression, unspecified; F10.129 Alcohol abuse with intoxication, unspecified; F17.290 Nicotine dependence, other tobacco product, uncomplicated
CPT/HCPCS: 80053; 80307; 82077; 85025; 99285; A4216